=== PATIENT | female | born 1990 | race Caucasian/White ===

== ENCOUNTER 2022-02-15 13:15 | Emergency (ER) | payer MEDICAID ==
[2022-02-15] MEDS ORDERED: Sodium Chloride 0.9% 1,000 ML IV ONE (14:03)
== END 2022-02-15 16:00 | disposition home or self-care (01) ==
LOC: CC.ED 13:15
DX: K52.9 Noninfective gastroenteritis and colitis, unspecified (principal); Z72.0 Tobacco use
CPT/HCPCS: 99283; J7030

== ENCOUNTER 2022-07-01 00:59 | Emergency (ER) | payer MEDICAID ==
[2022-07-01] MEDS: Sodium Chloride 0.9% 1,000 ML IV ONE (01:50)
[2022-07-01] MEDS: fentaNYL 50 MCG/ML SDV IVPUSH ONE ×2 (01:55→03:09)
[2022-07-01] MEDS: Ondansetron 4 MG/2 ML SDV IVPUSH SCH (01:58)
[2022-07-01] MEDS ORDERED: Iopamidol 755 Mg/ML 100 ML Bottle IVPUSH ONE (02:31)
== END 2022-07-01 04:20 | disposition home or self-care (01) ==
LOC: CC.ED 00:59
DX: N20.0 Calculus of kidney (principal)
CPT/HCPCS: 36415; 71260; 74178; 80053; 83605; 83735; 85025; 85379; 93005; 96361; 96374; 96376; 99284; 99284-25; J2405; J3010; J7030

== ENCOUNTER 2024-02-27 13:36 | Emergency (ER) | payer MEDICAID | END 2024-02-27 14:30 | disposition home or self-care (01) | LOC: CC.ED 13:36 | DX: S61.452A Open bite of left hand, initial encounter (principal); F17.210 Nicotine dependence, cigarettes, uncomplicated; W54.0XXA Bitten by dog, initial encounter | CPT/HCPCS: 99283 ==

== ENCOUNTER 2024-07-11 16:58 | Emergency (ER) | payer MEDICAID ==
[2024-07-11] MEDS: Take Home: Acetaminophen/HYDROcodone 325-5 MG, 2 Tab Pack PO ONE (17:27)
[2024-07-11] MEDS ORDERED: Take Home: Acetaminophen/HYDROcodone 325-5 MG, 2 Tab Pack ONE (17:32)
== END 2024-07-11 17:36 | disposition home or self-care (01) ==
LOC: CC.ED 16:58
DX: K04.7 Periapical abscess without sinus (principal)
CPT/HCPCS: 99282; 99283; A9270-GY